=== PATIENT | male | born 2005 | race Two or more races ===

== ENCOUNTER 2024-02-02 07:36 | Outpatient (REF) | payer OTHER, SELFPAY ==
--- NOTE | ~2024-02-02 | US_ITS ---
EXAMINATION: ULTRASOUND RENAL WITH DOPPLER CLINICAL INFORMATION: Hypertension COMPARISON: None. TECHNIQUE: Real-time grayscale, color Doppler, and duplex Doppler evaluation of the kidneys and renal vasculature was performed. FINDINGS: RENAL MEASUREMENTS: Right: 12.0 x 7.5 x 5.8 cm (Sag x AP x TV) Left: 12.8 x 5.9 x 5.2 cm (Sag x AP x TV) The renal parenchyma appears normal. No hydronephrosis or nephrolithiasis. DOPPLER INTERROGATION: Aorta: 60 cm/sec RIGHT: Main Renal Artery: Proximal: 163 cm/sec Mid: 117 cm/sec Distal: 96 cm/sec Resistive Index: Upper Pole Interlobar: 0.68 Inter Polar Interlobar: 0.68 Lower Pole Interlobar: 0.64 Right renal vein is patent LEFT: Main Renal Artery: Proximal: Not well visualized Mid: Not well visualized Distal: 85 cm/sec Resistive Index: Upper Pole Interlobar: 0.59 Inter Polar Interlobar: 0.67 Lower Pole Interlobar: 0.57 Left renal vein is patent. Renal-Aortic Ratio (RAR): Right: 2.7 Left: 1.4 US/US renal doppler IMPRESSION: 1. RIGHT: No sonographic evidence of renal artery stenosis. 2. LEFT: The proximal and mid portions of the left main renal artery not well visualized limiting evaluation. Otherwise no sonographic evidence of renal artery stenosis. 3. No nephrolithiasis or hydronephrosis.
--- NOTE | ~2024-02-02 | US_ITS ---
EXAMINATION: ULTRASOUND RENAL WITH DOPPLER CLINICAL INFORMATION: Hypertension COMPARISON: None. TECHNIQUE: Real-time grayscale, color Doppler, and duplex Doppler evaluation of the kidneys and renal vasculature was performed. FINDINGS: RENAL MEASUREMENTS: Right: 12.0 x 7.5 x 5.8 cm (Sag x AP x TV) Left: 12.8 x 5.9 x 5.2 cm (Sag x AP x TV) The renal parenchyma appears normal. No hydronephrosis or nephrolithiasis. DOPPLER INTERROGATION: Aorta: 60 cm/sec RIGHT: Main Renal Artery: Proximal: 163 cm/sec Mid: 117 cm/sec Distal: 96 cm/sec Resistive Index: Upper Pole Interlobar: 0.68 Inter Polar Interlobar: 0.68 Lower Pole Interlobar: 0.64 Right renal vein is patent LEFT: Main Renal Artery: Proximal: Not well visualized Mid: Not well visualized Distal: 85 cm/sec Resistive Index: Upper Pole Interlobar: 0.59 Inter Polar Interlobar: 0.67 Lower Pole Interlobar: 0.57 Left renal vein is patent. Renal-Aortic Ratio (RAR): Right: 2.7 Left: 1.4 US/US renal BI IMPRESSION: 1. RIGHT: No sonographic evidence of renal artery stenosis. 2. LEFT: The proximal and mid portions of the left main renal artery not well visualized limiting evaluation. Otherwise no sonographic evidence of renal artery stenosis. 3. No nephrolithiasis or hydronephrosis.
== END 2024-02-02 07:37 | disposition home or self-care (01) ==
LOC: HO.US 07:36
PROVIDERS: Visit Provider Internal Medicine
DX: I10 Essential (primary) hypertension (principal)
CPT/HCPCS: 76775; 93975